=== PATIENT | female | born 1980 | race Native Hawaiian/Other Pacific Islander ===

== ENCOUNTER 2016-08-01 06:57 | Emergency (ER) | payer MEDICAID, OTHER ==
[~2016-08-01] VITALS: Ht 160 cm; Wt 85.0 kg
[~2016-08-01 06:57] MED LIST: BACT800T5 PO; LEVO50TA4 PO; Z.0.BCPILL PO
[2016-08-01 07:05] VITALS: BP 130/71; PULSE 81; RESP 20; TEMP 97.4; O2SAT 96
[2016-08-01] MEDS ORDERED: birth control pills PO (07:14)
[2016-08-01] MEDS ORDERED: LEVO50TA4 PO (07:14)
[2016-08-01] MEDS ORDERED: BENZ100 PO (07:23)
[2016-08-01] MEDS ORDERED: ZITHTAB PO (07:23)
--- NOTE | 2016-08-01 07:27 | PD ---
HPI Chief Complaint: Cold / Flu Symptoms Time Seen by Provider: 07:23 Travel History International Travel<30 days: No Contact w/Intl Traveler<30days: No Traveled to known affect area: No History of Present Illness HPI 36-year-old female presents to the emergency department for evaluation of cough and sore throat. Patient states that for the past week she has had a cough and that she has developed a sore throat secondary to her cough over the last several days. States that she does have some yellow brown mucus with her cough. States that she has some shortness of breath with coughing. She has some pressure in her right ear, states that this happens when she gets sick because she has a perforated eardrum on the right. Denies any fever, chills, nausea, vomiting, chest pain, lightheadedness, dizziness, abdominal pain. Denies . Denies any medical conditions. Denies smoking. No other complaints. PFSH Past Medical History Diabetes: No Diminished Hearing: No Headaches: Yes (MIGRAINES) Migraines: Yes Thyroid Disease: Yes (HYPO) ?: Not : 3 Para: 3 Past Surgical History Section: Yes (X3) Tonsillectomy: Yes Social History Alcohol Use: No Tobacco Use: No Substance Use: No Allergies-Medications (Allergen,Severity, Reaction): Coded Allergies: No Known Allergies (Verified , 08/01/16) Reported Meds & Prescriptions Reported Meds & Active Scripts Active Tessalon Perles (Benzonatate) 100 Mg Cap 100 Mg PO TID PRN 7 Days Zithromax Z-Isaias (Azithromycin) 250 Mg Dspk 250 Mg PO DIRECTED 500 MG (2 tabs) day 1, then 1 tab days 2-5. Reported [ control pills] 1 Tab PO DAILY Levothyroxine (Levothyroxine Sodium) 50 Mcg Tab 50 Mcg PO DAILY Review of Systems Except as stated in HPI: all other systems reviewed are Neg Physical Exam Narrative GENERAL: Well-nourished and well-developed pleasant patient in no acute distress who is nontoxic appearing. SKIN: Warm and dry. HEAD: Normocephalic and atraumatic. EYES: No injection, drainage, or hyphema noted. PERRLA. EOMI. ENT: No nasal drainage noted. Oropharynx is clear the left tympanic membrane is normal with good landmarks. The right tympanic membrane has a perforated eardrum but no erythema or discharge or drainage. NECK: Supple and the trachea is midline. CARDIOVASCULAR: Regular rate and rhythm. RESPIRATORY: Breath sounds are equal bilaterally with no accessory muscle use, wheezing, rhonchi, or crackles. MUSCULOSKELETAL: No obvious deformities, swelling, cyanosis, or ecchymosis is present throughout the upper and lower extremities. NEUROLOGICAL: Awake, alert, and oriented. Normal speech and gait. Cranial nerves are grossly intact. Data Data Last Documented VS Vital Signs Date Time Temp Pulse Resp B/P Pulse Ox O2 Delivery O2 Flow Rate FiO2 08/01/16 07:05 97.4 81 20 130/71 96 MDM Medical Decision Making Medical Screen Exam Complete: Yes Emergency Medical Condition: Yes Differential Diagnosis Acute bronchitis versus pneumonia versus URI versus allergies Narrative Course 36-year-old female presents to the emergency department for evaluation of productive cough and sore throat. Patient is afebrile, vital signs are stable. Physical examination essentially unremarkable. Patient has had this cough worsening over the past week with productive mucus. We'll give the patient is Z -IsaiasLisasalpablo Perlabbie and she is instructed to take [id number] Mucinex. Patient verbalizes understanding and agreement with treatment plan. Diagnosis Primary Impression: Acute bronchitis Qualified Code: J20.9 - Acute bronchitis, unspecified organism Referrals: Primary Care Physician Patient Instructions: Acute Bronchitis (ED), General Instructions Additional Instructions: Take [id number] Mucinex. Take medications as prescribed with food and a full glass of water. Follow-up with your Primary Care Physician. Return to the ED for any acute worsening of symptoms. Med/Other Pt SpecificInfo: Prescription(s) given Scripts Benzonatate (Tessalon Perles)100 Mg [id number] Mg PO TID PRN (COUGH) 7 Days Ref 0 Prov:Sarbjit Drake MD 08/01/16 Azithromycin (Zithromax Z-Isaias)250 Mg [id number] Mg PO DIRECTED #1 DSPK Ref 0 500 MG (2 tabs) day 1, then 1 tab days 2-5. Prov:Sarbjit Drake MD 08/01/16 Disposition: 01 DISCHARGE HOME Condition: Stable Elizabeth Delarosa Aug 01, 2016 07:27
== END 2016-08-01 07:41 | disposition home or self-care (01) ==
LOC: NEPB 06:57
DX: J20.9 Acute bronchitis, unspecified (principal)
CPT/HCPCS: 99283

== ENCOUNTER 2017-02-11 17:47 | Emergency (ER) | payer MEDICAID ==
[~2017-02-11] VITALS: Ht 162.6 cm; Wt 91.0 kg
[~2017-02-11 17:47] MED LIST changes: -BACT800T5 PO; +BENZ100 PO; -Z.0.BCPILL PO; +ZITHTAB PO; +birth control pills PO
[2017-02-11 17:54] VITALS: BP 117/70; PULSE 100; RESP 16; TEMP 98.5; O2SAT 99
--- NOTE | 2017-02-11 18:56 | RADRPT ---
EXAM DATE/TIME: 02/11/2017 18:13 [facility] COMPARISON: No previous studies available for comparison. INDICATIONS : Right knee pain. MEDICAL HISTORY : None. SURGICAL HISTORY : None. ENCOUNTER: Initial ACUITY: 2 days PAIN SCORE: 5/10 LOCATION: Right knee. FINDINGS: No fracture or subluxation seen of the right knee. A moderate joint effusion is present. CONCLUSION: 2 view study was done. Nonspecific joint effusion without evidence of fracture. Hua Mathew MD on February 11, 2017 at 18:54 Board Certified Radiologist. This report was verified electronically.
--- NOTE | 2017-02-11 19:20 | PD ---
HPI Chief Complaint: Injury Time Seen by Provider: 18:40 Travel History International Travel<30 days: No Contact w/Intl Traveler<30days: No Traveled to known affect area: No History of Present Illness HPI 36-year-old female presents emergency department for evaluation of right knee pain status post fall yesterday. Denies head injury or loss consciousness. Patient reports she has pain in the anterior aspect of the knee. The pain is constant, nonradiating worse with flexion relieved with rest and elevation. She denies numbness/tingling/weakness in the extremity. No other injuries. PFSH Past Medical History Medical History: Denies Significant Hx Diabetes: No Diminished Hearing: No Headaches: Yes (MIGRAINES) Migraines: Yes Thyroid Disease: Yes (HYPO) ?: Not : 3 Para: 3 Past Surgical History Section: Yes (X3) Tonsillectomy: Yes Social History Alcohol Use: No Tobacco Use: No Substance Use: No Allergies-Medications (Allergen,Severity, Reaction): Coded Allergies: No Known Allergies (Verified , 02/11/17) Reported Meds & Prescriptions Reported Meds & Active Scripts Active Reported [ control pills] 1 Tab PO DAILY Levothyroxine (Levothyroxine Sodium) 50 Mcg Tab 50 Mcg PO DAILY Review of Systems Except as stated in HPI: all other systems reviewed are Neg General / Constitutional: No: Fever Eyes: No: Visual changes HENT: No: Headaches Cardiovascular: No: Chest Pain or Discomfort Respiratory: No: Shortness of Breath Gastrointestinal: No: Abdominal Pain Genitourinary: No: Dysuria Physical Exam Narrative GENERAL: Well-nourished, well-developed patient. SKIN: Focused skin assessment warm/dry. HEAD: Normocephalic. EYES: No scleral icterus. No injection or drainage. NECK: Supple, trachea midline. No JVD or lymphadenopathy. CARDIOVASCULAR: Regular rate and rhythm without murmurs, gallops, or rubs. RESPIRATORY: Breath sounds equal bilaterally. No accessory muscle use. GASTROINTESTINAL: Abdomen soft, non-tender, nondistended. MUSCULOSKELETAL: No cyanosis, or edema. Right knee: TTP over the anterior aspect. Small joint effusion. The joint is stable. Patient has pain with full flexion. 2+ distal pulses. Normal sensation. BACK: Nontender without obvious deformity. No CVA tenderness. Data Data Last Documented VS Vital Signs Date Time Temp Pulse Resp B/P Pulse Ox O2 Delivery O2 Flow Rate FiO2 02/11/17 17:54 98.5 100 16 117/70 99 Orders Knee, Ltd (1 Or 2vws) (02/11/17 ) Vicente Bandage (02/11/17 19:09) [facility] Medical Decision Making Medical Screen Exam Complete: Yes Emergency Medical Condition: Yes Differential Diagnosis Patella fracture, knee sprain, knee contusion Narrative Course 36-year-old female with chief complaint right knee pain status post fall onto a flexed knee yesterday. On exam patient has a small joint effusion. The joint is stable. Extremities neurovascularly intact. X-ray reveal no fracture. Patient be treated for knee sprain. Vicente wrap applied. Patient advised ice and elevate the extremity NSAIDs as needed for pain. Follow-up with primary care. Patient verbalizes understanding and agrees to plan Diagnosis Primary Impression: Knee sprain Qualified Code: S83.91XA - Sprain of right knee, unspecified ligament, initial encounter Referrals: Primary Care Physician Additional Instructions: Review the Vicente wrap as directed. Ice and elevate the extremity. Take [id number] Motrin [id number] milligrams every 6-8 hours as needed for pain. Follow-up the primary care doctor. Disposition: 01 DISCHARGE HOME Condition: Stable Laura Toney Feb 11, 2017 19:20
== END 2017-02-11 19:29 | disposition home or self-care (01) ==
LOC: PHEFT 17:47
DX: S83.91XA Sprain of unspecified site of right knee, initial encounter (principal); W19.XXXA Unspecified fall, initial encounter
CPT/HCPCS: 73560; 99283